=== PATIENT | female | born 1930 | race Caucasian/White ===

== ENCOUNTER 2016-11-14 14:50 | Inpatient (IN) | payer OTHER ==
[~2016-11-14] VITALS: Ht 152.4 cm; Wt 60.5 kg
[~2016-11-14 14:50] MED LIST: AMLODIPINE BESYL5 MG PO; GLIMEPIRIDE4 MG PO; INVOKANA100 MG PO; LISINOPRIL-HCT1 EACH PO; METFORMIN HCL1000 MG PO; PRAVASTATIN SOD20 MG PO; VICTOZA0.6 MG/0.1 SC
[2016-11-14 15:39] LABS: HEMATOCRIT 44.4 % (36.0-46.0); MCH 31.3 PG (29.0-34.0); MEAN PLAT.VOLUME 12.6 uM^3 (9.5-12.4); PLATELET COUNT 231 K/uL (156-360); RBC DIS.WIDTH-CV 14.9 % (11.8-14.6); RBC DIS.WIDTH-SD 53.9 % (39-53); RED BLOOD COUNT 4.53 M/uL (3.80-5.20); WHITE BLOOD COUNT 24.2 K/uL (4.1-10.2)
[2016-11-14 15:50] LABS: INTER. NORMALIZED RATIO 1.2; PTT 33.6 (25-32)
[2016-11-14 15:58] LABS: CHLORIDE 101 mEq/L (99-109); POTASSIUM 3.2 mEq/L (3.7-5.4); SODIUM 141 mEq/L (136-147)
[2016-11-14 16:00] LABS: GLUCOSE 90 mg/dL (70-99)
[2016-11-14 16:01] LABS: ANION GAP 21 MEQ/L (2-14)
[2016-11-14 16:02] LABS: TOTAL BILIRUBIN 0.7 mg/dL (0.0-1.0)
[2016-11-14 16:04] LABS: ALKALINE PHOSPHATASE 78 IU/L (3-129); GFR ESTIMATE (CALCULATED) 56 mL/min/
[2016-11-14 16:05] LABS: UREA NITROGEN (BUN) 26 mg/dL (9-23)
[2016-11-14 16:06] LABS: TROP-I INTERPRETATION INDETERMINATE; TROPONIN-I 0.33 ng/mL (0.0-0.30)
[2016-11-14 16:07] LABS: LIPASE 30 U/L (1.0-51.0)
[2016-11-14 17:01] LABS: ADD MIUA? YES; BILIRUBIN NEGATIVE; BLOOD SMALL; COLOR YELLOW ((YELLOW)); GLUCOSE (STRIP) >=500; KETONES 20; LEUKOCYTES LARGE; NITRITE NEGATIVE; PROTEIN (STRIP) 100; SPECIFIC GRAVITY 1.017 (1.000-1.030); UROBILINOGEN 0.2 MG/DL (0.2-1.0)
[2016-11-14 17:20] LABS: BACTERIA 3+ /HPF; EPITHELIAL CELLS RARE /HPF; MUCUS TRACE /LPF; RED BLOOD CELLS TNTC /HPF (0-5); UCUL ADDED? YES; WHITE BLOOD CELLS TNTC /HPF (0-5); WHITE BLOOD CELLS CLUMP MANY /HPF (0-5)
[2016-11-14] MEDS ORDERED: PRESERVISION T1 EACH PO (18:03)
[2016-11-14] MEDS ORDERED: LO-DOSE ASPIRIN81 M2 PO (18:03)
[2016-11-14] MEDS ORDERED: HYDROCHLOROTHIA25 MG PO (18:03)
[2016-11-14] MEDS ORDERED: CALCIUM 600+D1 EAC1 PO (18:03)
[2016-11-14 21:13] LABS: ABS NEUTROPHIL COUNT 14.9; ANISOCYTOSIS 1+; ATYPICAL LYMPHOCYTE 5.5 %; EOSINOPHIL ABS CT 0; INSTRUMENT ABS NEUTROPHIL CT 13.8 K/uL; PLAT.SUFFICIENCY ADEQUATE; SEG.NEUTROPHILS 54.5 % (46.0-76.0)
[2016-11-14 21:53] LABS: INTACT PARATHYROID HORMONE 30 pg/mL (10-69)
[2016-11-14 22:03] VITALS: BP 101/56
[2016-11-14 22:28] LABS: TROP-I INTERPRETATION NEGATIVE; TROPONIN-I 0.26 ng/mL (0.0-0.30)
[2016-11-14 22:47] LABS: CREATINE KINASE 369 IU/L (1-294); SAMPLE HEMOLYSIS CHECK 0; SAMPLE ICTERIC CHECK 0; SAMPLE LIPEMIA CHECK 0
[2016-11-15 03:39] VITALS: BP 115/53
[2016-11-15 04:07] LABS: HEMATOCRIT 35.8 % (36.0-46.0); MCH 31.8 PG (29.0-34.0); MCHC 32.4 G/DL (30.0-36.0); MCV 98.1 FL (83-99); MEAN PLAT.VOLUME 12.4 uM^3 (9.5-12.4); PLATELET COUNT 184 K/uL (156-360); RBC DIS.WIDTH-CV 14.7 % (11.8-14.6); RBC DIS.WIDTH-SD 53.3 % (39-53); RED BLOOD COUNT 3.65 M/uL (3.80-5.20)
[2016-11-15 04:08] LABS: WHITE BLOOD COUNT 13.6 K/uL (4.1-10.2)
[2016-11-15 04:16] LABS: CHLORIDE 106 mEq/L (99-109); POTASSIUM 3.5 mEq/L (3.7-5.4); SODIUM 141 mEq/L (136-147)
[2016-11-15 04:19] LABS: ANION GAP 15 MEQ/L (2-14)
[2016-11-15 04:21] LABS: GFR ESTIMATE (CALCULATED) > 59 mL/min/
[2016-11-15 04:22] LABS: UREA NITROGEN (BUN) 16 mg/dL (9-23)
[2016-11-15 04:26] LABS: TROP-I INTERPRETATION NEGATIVE
[2016-11-15 04:28] LABS: GLUCOSE 57 mg/dL (70-99)
[2016-11-15 07:47] VITALS: BP 112/72
[2016-11-15 12:23] VITALS: BP 126/72
[2016-11-15 19:30] VITALS: BP 103/51
[2016-11-15 20:52] LABS: POINT-OF-CARE METER ID UU13113725
[2016-11-15 22:53] VITALS: BP 106/55
[2016-11-16 02:59] VITALS: BP 123/66
[2016-11-16 06:54] LABS: HEMATOCRIT 41.5 % (36.0-46.0); MCH 31.5 PG (29.0-34.0); MCHC 31.1 G/DL (30.0-36.0); MCV 101.2 FL (83-99); MEAN PLAT.VOLUME 12.9 uM^3 (9.5-12.4); PLATELET COUNT 196 K/uL (156-360); RBC DIS.WIDTH-CV 15.1 % (11.8-14.6); RBC DIS.WIDTH-SD 56.6 % (39-53); WHITE BLOOD COUNT 12.4 K/uL (4.1-10.2)
[2016-11-16 07:06] VITALS: BP 125/57
[2016-11-16 07:30] LABS: ANION GAP 11 MEQ/L (2-14); CHLORIDE 107 MEQ/L (99-109); GFR ESTIMATE (CALCULATED) > 59 mL/min/; SAMPLE HEMOLYSIS CHECK 0; SAMPLE ICTERIC CHECK 0; SAMPLE LIPEMIA CHECK 0; SODIUM 145 MEQ/L (136-147); UREA NITROGEN (BUN) 18 mg/dL (9-23)
[2016-11-16 07:31] LABS: GLUCOSE 150 mg/dL (70-99); POTASSIUM 4.7 MEQ/L (3.7-5.4)
[2016-11-16 10:34] LABS: POINT-OF-CARE METER ID UU13113725
[2016-11-16 10:49] VITALS: BP 88/54
[2016-11-16 12:27] LABS: ABS NEUTROPHIL COUNT 6.2; ANISOCYTOSIS 1+; ATYPICAL LYMPHOCYTE 3.3 %; BAND NEUTROPHILS 2.2 % (0-8.0); EOSINOPHIL ABS CT 0.1; EOSINOPHILS 1.1 % (0-5.0); INSTRUMENT ABS NEUTROPHIL CT 5.4 K/uL; LYMPHOCYTES 15.2 % (15.0-45.0); PLAT.SUFFICIENCY ADEQUATE; POLYCHROMASIA 1+; SEG.NEUTROPHILS 47.8 % (46.0-76.0)
[2016-11-16 16:01] VITALS: BP 104/59
[2016-11-16 19:26] VITALS: BP 130/60
[2016-11-16 23:24] VITALS: BP 129/68
[2016-11-17 03:30] VITALS: BP 140/75
[2016-11-17 06:42] LABS: HEMATOCRIT 40.2 % (36.0-46.0); MCH 31.4 PG (29.0-34.0); MCHC 31.3 G/DL (30.0-36.0); MCV 100.2 FL (83-99); MEAN PLAT.VOLUME 12.9 uM^3 (9.5-12.4); PLATELET COUNT 183 K/uL (156-360); RBC DIS.WIDTH-CV 15.2 % (11.8-14.6); RBC DIS.WIDTH-SD 56.7 % (39-53); RED BLOOD COUNT 4.01 M/uL (3.80-5.20); WHITE BLOOD COUNT 13.4 K/uL (4.1-10.2)
[2016-11-17 07:08] LABS: ANION GAP 12 MEQ/L (2-14); CHLORIDE 107 MEQ/L (99-109); GFR ESTIMATE (CALCULATED) > 59 mL/min/; GLUCOSE 179 mg/dL (70-99); POTASSIUM 3.7 MEQ/L (3.7-5.4); SAMPLE HEMOLYSIS CHECK 0; SAMPLE ICTERIC CHECK 0; SAMPLE LIPEMIA CHECK 0; SODIUM 144 MEQ/L (136-147); UREA NITROGEN (BUN) 21 mg/dL (9-23)
[2016-11-17 07:20] VITALS: BP 109/62
[2016-11-17 08:50] LABS: ABS NEUTROPHIL COUNT 8.6; EOSINOPHIL ABS CT 0; INSTRUMENT ABS NEUTROPHIL CT 6.1 K/uL; MACROCYTES 1+; PLAT.SUFFICIENCY ADEQUATE; POLYCHROMASIA 1+
[2016-11-17 10:39] VITALS: BP 125/58
[2016-11-17 16:02] LABS: POINT-OF-CARE METER ID UU13113725
[2016-11-17 16:15] VITALS: BP 99/57
[2016-11-17 20:12] VITALS: BP 120/60
[2016-11-17 21:22] LABS: POINT-OF-CARE METER ID UU13113725
[2016-11-18 00:20] VITALS: BP 107/64
[2016-11-18 06:02] LABS: POINT-OF-CARE METER ID UU13113725
[2016-11-18 07:00] VITALS: BP 121/60
[2016-11-18 11:45] LABS: POINT-OF-CARE METER ID UU13113725
[2016-11-18 16:41] VITALS: BP 112/58
[2016-11-18 17:07] LABS: POINT-OF-CARE METER ID UU13113725
[2016-11-18 21:57] VITALS: BP 106/59; BP 109/59
[2016-11-18 22:23] VITALS: BP 114/55
[2016-11-19 06:40] LABS: HEMATOCRIT 37.8 % (36.0-46.0); MCH 31.5 PG (29.0-34.0); MCHC 31.2 G/DL (30.0-36.0); MCV 100.8 FL (83-99); MEAN PLAT.VOLUME 12.6 uM^3 (9.5-12.4); PLATELET COUNT 176 K/uL (156-360); RBC DIS.WIDTH-CV 15.3 % (11.8-14.6); RBC DIS.WIDTH-SD 56.6 % (39-53); RED BLOOD COUNT 3.75 M/uL (3.80-5.20); WHITE BLOOD COUNT 14.8 K/uL (4.1-10.2)
[2016-11-19 07:01] VITALS: BP 130/62
[2016-11-19 07:19] LABS: ALKALINE PHOSPHATASE 49 IU/L (3-129); ANION GAP 11 MEQ/L (2-14); CHLORIDE 107 MEQ/L (99-109); GFR ESTIMATE (CALCULATED) > 59 mL/min/; GLUCOSE 216 mg/dL (70-99); POTASSIUM 3.8 MEQ/L (3.7-5.4); SAMPLE HEMOLYSIS CHECK 0; SAMPLE ICTERIC CHECK 0; SAMPLE LIPEMIA CHECK 0; SODIUM 142 MEQ/L (136-147); TOTAL BILIRUBIN 0.4 MG/DL (0.0-1.0); UREA NITROGEN (BUN) 20 mg/dL (9-23)
[2016-11-19 07:45] LABS: ABS NEUTROPHIL COUNT 7.5; ANISOCYTOSIS 1+; BAND NEUTROPHILS 2.6 % (0-8.0); EOSINOPHIL ABS CT 0; INSTRUMENT ABS NEUTROPHIL CT 5.8 K/uL; LYMPHOCYTES 15.8 % (15.0-45.0); MACROCYTES 1+; METAMYELOCYTES 2.6 %; MYELOCYTES 4.4 %; PLAT.SUFFICIENCY ADEQUATE; POLYCHROMASIA 2+; SEG.NEUTROPHILS 48.3 % (46.0-76.0)
[2016-11-19 14:55] VITALS: BP 139/66
[2016-11-19 14:56] VITALS: BP 116/67; BP 121/67
[2016-11-19] MEDS ORDERED: CARVEDILOL6.25 MG PO (15:14)
[2016-11-19] MEDS ORDERED: FLUCONAZOLE100 MG PO (15:14)
[2016-11-19] MEDS ORDERED: VALSARTAN160 MG PO (15:15)
[2016-11-19] MEDS ORDERED: CYANOCOBALAM1000 MCG PO (15:20)
[2016-11-19] MEDS ORDERED: NOVOLOG PE100 UNITS/ SC (15:20)
[2016-11-19] MEDS ORDERED: BACTRIM,SEPT1 TABLET PO (15:31)
[2016-11-19 15:53] VITALS: BP 109/56
[2016-11-19 21:07] LABS: POINT-OF-CARE METER ID UU13113725
[2016-11-20 00:06] VITALS: BP 104/55
[2016-11-20 06:04] LABS: POINT-OF-CARE METER ID UU13113725
[2016-11-20 07:03] VITALS: BP 132/60
[2016-11-20] MEDS ORDERED: BACTRIM,SEPT1 TABLET PO (16:09)
[2016-11-20 16:36] VITALS: BP 125/59
[2016-11-20 16:37] VITALS: BP 123/58; BP 129/60
== END 2016-11-20 17:40 | DRG 871 ==
LOC: EME 14:50 → 5EAST 19:48 → EDOF 19:48 → 5EAST 21:48
PROVIDERS: Emergency Medicine; Hospitalist
DX: B37.7 Candidal sepsis (principal); B37.49 Other urogenital candidiasis; G93.41 Metabolic encephalopathy; I11.0 Hypertensive heart disease with heart failure; I50.23 Acute on chronic systolic (congestive) heart failure; E87.2 Acidosis; I24.8 Other forms of acute ischemic heart disease; I42.9 Cardiomyopathy, unspecified; L89.150 Pressure ulcer of sacral region, unstageable; L89.153 Pressure ulcer of sacral region, stage 3; L03.116 Cellulitis of left lower limb; B37.3 Candidiasis of vulva and vagina; E11.8 Type 2 diabetes mellitus with unspecified complications; E86.0 Dehydration; E87.6 Hypokalemia; E83.52 Hypercalcemia; I89.0 Lymphedema, not elsewhere classified; F03.90 Unspecified dementia, unspecified severity, without behavioral disturbance, psychotic disturbance, mood disturbance, and anxiety; R39.15 Urgency of urination; R32 Unspecified urinary incontinence; E78.5 Hyperlipidemia, unspecified; B35.1 Tinea unguium; R91.8 Other nonspecific abnormal finding of lung field; Z79.82 Long term (current) use of aspirin
CPT/HCPCS: 70450; 71010; 71275; 74176; 80048; 80053; 81003; 82550; 82550 91; 82565; 82607; 82746; 82948; 83605; 83690; 83880; 83970; 84443; 84484; 84520; 85025; 85027; 85610; 85730; 87040; 87086; 87106; 93005; 93306; 93970; 94799; 95819; 97530 GO; 99281; 99285; J0696; J1644; J1650; J1815; J1940; J7030; J7050

== ENCOUNTER 2017-08-04 16:11 | Observation (INO) | payer OTHER ==
[~2017-08-04] VITALS: Ht 147.3 cm; Wt 58.4 kg
[~2017-08-04 16:11] MED LIST changes: +BACTRIM,SEPT1 TABLET PO; +CALCIUM 600+D1 EAC1 PO; +CARVEDILOL6.25 MG PO; +CYANOCOBALAM1000 MCG PO; +FLUCONAZOLE100 MG PO; +HYDROCHLOROTHIA25 MG PO; +LO-DOSE ASPIRIN81 M2 PO; +NOVOLOG PE100 UNITS/ SC; +PRESERVISION T1 EACH PO; +VALSARTAN160 MG PO
[2017-08-04 16:56] LABS: HEMATOCRIT 45.7 % (36.0-46.0); MCH 31.6 PG (29.0-34.0); MCHC 31.9 G/DL (30.0-36.0); MCV 98.9 FL (83-99); RBC DIS.WIDTH-CV 14.5 % (11.8-14.6); RBC DIS.WIDTH-SD 52.8 % (39-53); RED BLOOD COUNT 4.62 M/uL (3.80-5.20); WHITE BLOOD COUNT 18.3 K/uL (4.1-10.2)
[2017-08-04 17:00] LABS: CHLORIDE 103 mEq/L (99-109); POTASSIUM 4.1 mEq/L (3.7-5.4); SODIUM 140 mEq/L (136-147)
[2017-08-04 17:02] LABS: GLUCOSE 157 mg/dL (70-99)
[2017-08-04 17:03] LABS: ANION GAP 12 MEQ/L (2-14)
[2017-08-04 17:04] LABS: TOTAL BILIRUBIN 0.8 mg/dL (0.0-1.0)
[2017-08-04 17:06] LABS: ALKALINE PHOSPHATASE 69 IU/L (3-129); GFR ESTIMATE (CALCULATED) > 59 mL/min/
[2017-08-04 17:07] LABS: UREA NITROGEN (BUN) 14 mg/dL (9-23)
[2017-08-04 17:15] LABS: ADD MIUA? YES; BILIRUBIN NEGATIVE; BLOOD SMALL; COLOR YELLOW ((YELLOW)); GLUCOSE (STRIP) >=500; KETONES 5; LEUKOCYTES LARGE; NITRITE NEGATIVE; PROTEIN (STRIP) 100; SPECIFIC GRAVITY 1.012 (1.000-1.030); UROBILINOGEN 0.2 MG/DL (0.2-1.0)
[2017-08-04 17:44] LABS: RED BLOOD CELLS 0-5 /HPF (0-5); WHITE BLOOD CELLS 30-40 /HPF (0-5)
[2017-08-04 17:45] LABS: BACTERIA RARE /HPF; CASTS NONE SEEN /LPF; CRYSTALS NONE SEEN; EPITHELIAL CELLS 1+ /HPF; MUCUS NONE SEEN /LPF; UCUL ADDED? YES
[2017-08-04 19:16] LABS: ABS NEUTROPHIL COUNT 10.1; ANISOCYTOSIS 1+; EOSINOPHIL ABS CT 0; INSTRUMENT ABS NEUTROPHIL CT 8.2 K/uL; PLAT.SUFFICIENCY DECREASED; PLATELET COUNT 113 K/uL (156-360); POLYCHROMASIA 1+
[2017-08-04] MEDS ORDERED: CEPHALEXIN500 MG PO (22:05)
[2017-08-04] MEDS ORDERED: COREG3.125 M1 PO (23:01)
[2017-08-04] MEDS ORDERED: COZAAR25 MG PO (23:02)
[2017-08-05 00:10] VITALS: BP 149/67
[2017-08-05 03:58] VITALS: BP 124/62
[2017-08-05 06:43] LABS: BASOPHIL COUNT 0.1 K/uL (0-0.1); EOSINOPHIL (%) 0.3 % (0-5); EOSINOPHIL COUNT 0.1 K/uL (0-0.3); HEMATOCRIT 41.9 % (36.0-46.0); IMMATURE GRANULOCYTE (%) 4.3 % (0.0-0.7); IMMATURE GRANULOCYTE COUNT 0.7 K/uL; INSTRUMENT ABS NEUTROPHIL CT 6.7 K/uL; LYMPHOCYTE COUNT 1.6 K/uL (1.0-2.8); MCH 32.6 PG (29.0-34.0); MCHC 32.2 G/DL (30.0-36.0); MCV 101.2 FL (83-99); MEAN PLAT.VOLUME 13.9 uM^3 (9.5-12.4); MONOCYTE (%) 44.8 % (3-12); MONOCYTE COUNT 7.4 K/uL (0-0.8); NEUTROPHIL (%) 40.4 % (45-76); NEUTROPHIL COUNT 6.7 K/uL (1.8-6.4); NRBC (%) 0.1 /100 WBC (0-0); PLATELET COUNT 101 K/uL (156-360); RBC DIS.WIDTH-CV 14.8 % (11.8-14.6); RBC DIS.WIDTH-SD 55.5 % (39-53); RED BLOOD COUNT 4.14 M/uL (3.80-5.20); WHITE BLOOD COUNT 16.5 K/uL (4.1-10.2)
[2017-08-05 07:44] LABS: HEMATOLOGY COMMENT 1 SMEAR COMPATIBLE; PLAT.SUFFICIENCY DECREASED
[2017-08-05 08:21] LABS: POINT-OF-CARE METER ID UU13113831
[2017-08-05 09:00] VITALS: BP 135/65
[2017-08-05 12:20] VITALS: BP 128/62
[2017-08-05 12:44] LABS: POINT-OF-CARE METER ID UU13113700
[2017-08-05 13:34] LABS: C-REACTIVE PROTEIN 93.1 MG/L (0-10)
[2017-08-05 17:48] LABS: POINT-OF-CARE METER ID UU13113700
[2017-08-05 20:00] VITALS: BP 139/61
[2017-08-05 22:46] LABS: POINT-OF-CARE METER ID UU13113831
[2017-08-06 00:08] VITALS: BP 155/63
[2017-08-06 04:40] VITALS: BP 142/65
[2017-08-06 08:33] LABS: POINT-OF-CARE METER ID UU13113700
[2017-08-06 11:11] VITALS: BP 129/60
[2017-08-06 12:12] VITALS: BP 188/81
[2017-08-06 12:37] LABS: POINT-OF-CARE METER ID UU13113700
[2017-08-06 16:43] VITALS: BP 154/69
[2017-08-06 17:45] LABS: POINT-OF-CARE METER ID UU13113700
[2017-08-06 20:44] VITALS: BP 143/63
[2017-08-06 21:50] LABS: POINT-OF-CARE METER ID UU13113831
[2017-08-07 00:08] VITALS: BP 147/65
[2017-08-07 03:57] VITALS: BP 141/62
[2017-08-07 09:45] LABS: Flow Number of Markers 23 (()); Flow Spec Viability 97 % (()); Flow Specimen Type PERIPHERAL BLOOD (())
[2017-08-07 11:43] VITALS: BP 137/84
[2017-08-07 12:42] LABS: POINT-OF-CARE METER ID UU13113700
[2017-08-07 15:43] LABS: Prior Results Not Given (())
[2017-08-07 16:29] LABS: P190 BCR-ABL1 Not Detected (()); P210 BCR-ABL1 Not Detected (())
[2017-08-07 17:14] LABS: POINT-OF-CARE METER ID UU13113700
[2017-08-10 19:04] LABS: JAK2 Mutation Result NOT DETECTED (())
[2017-08-10 19:35] LABS: JAK2 Exon 12 Mutation NOT DETECTED (())
== END 2017-08-07 18:16 ==
LOC: EME 16:11 → EDOF 22:51 → 5WEST 22:51 → EDOF 22:51 → ENRESERV 22:54 → 5WEST 08-05 00:03
PROVIDERS: Emergency Medicine; Hospitalist; Internal Medicine Hematology & Oncology; Physician Assistant Medical
DX: D72.829 Elevated white blood cell count, unspecified (principal); M25.562 Pain in left knee; S30.0XXA Contusion of lower back and pelvis, initial encounter; E87.2 Acidosis; B35.1 Tinea unguium; N39.0 Urinary tract infection, site not specified; G89.29 Other chronic pain; M17.12 Unilateral primary osteoarthritis, left knee; W08.XXXA Fall from other furniture, initial encounter; F03.90 Unspecified dementia, unspecified severity, without behavioral disturbance, psychotic disturbance, mood disturbance, and anxiety; I11.0 Hypertensive heart disease with heart failure; I50.22 Chronic systolic (congestive) heart failure; E11.65 Type 2 diabetes mellitus with hyperglycemia; I51.7 Cardiomegaly; R32 Unspecified urinary incontinence; Z60.2 Problems related to living alone; Z87.891 Personal history of nicotine dependence; Z83.3 Family history of diabetes mellitus
CPT/HCPCS: 70450; 71010; 72125; 73521; 73522; 73564; 80053; 81003; 81206 90; 81270 90; 82728; 82948; 83605; 84443; 85025; 85651; 86140; 86317 90; 86704 90; 86708 90; 86709 90; 86803 90; 87040; 87086; 88185 90; 93971; 97530 GO; 99281; 99285; G0378; G8978 GP CJ; G8979 GP CI; G8987 CK; G8988 GO CJ; J0690; J0696; J1644; J1815; J7030

== ENCOUNTER 2017-08-17 22:00 | Emergency (ER) | payer OTHER ==
[~2017-08-17] VITALS: Ht 165.1 cm; Wt 58.9 kg
[~2017-08-17 22:00] MED LIST changes: +CEPHALEXIN500 MG PO; +COREG3.125 M1 PO; +COZAAR25 MG PO
[2017-08-17 23:20] LABS: ADD MIUA? YES; BILIRUBIN NEGATIVE; BLOOD NEGATIVE; COLOR YELLOW ((YELLOW)); GLUCOSE (STRIP) >=500; KETONES NEGATIVE; LEUKOCYTES TRACE; NITRITE NEGATIVE; PROTEIN (STRIP) NEGATIVE; SPECIFIC GRAVITY 1.025 (1.000-1.030)
[2017-08-17 23:24] LABS: HEMATOCRIT 37.7 % (36.0-46.0); MCH 32.4 PG (29.0-34.0); MCHC 32.1 G/DL (30.0-36.0); MCV 101.1 FL (83-99); MEAN PLAT.VOLUME 14.5 uM^3 (9.5-12.4); RBC DIS.WIDTH-CV 15.2 % (11.8-14.6); RBC DIS.WIDTH-SD 56.1 % (39-53); RED BLOOD COUNT 3.73 M/uL (3.80-5.20); WHITE BLOOD COUNT 15.2 K/uL (4.1-10.2)
[2017-08-17 23:24] LABS: BACTERIA NONE SEEN /HPF; EPITHELIAL CELLS NONE SEEN /HPF; MUCUS NONE SEEN /LPF; RED BLOOD CELLS 0-5 /HPF (0-5); UCUL ADDED? YES; WHITE BLOOD CELLS 20-30 /HPF (0-5)
[2017-08-17 23:26] LABS: PLATELET COUNT 72 K/uL (156-360)
[2017-08-17 23:33] LABS: CHLORIDE 108 mEq/L (99-109)
[2017-08-17 23:35] LABS: GLUCOSE 170 mg/dL (70-99)
[2017-08-17 23:36] LABS: ANION GAP 11 MEQ/L (2-14)
[2017-08-17 23:38] LABS: GFR ESTIMATE (CALCULATED) > 59 mL/min/
[2017-08-17 23:39] LABS: UREA NITROGEN (BUN) 12 mg/dL (9-23)
[2017-08-17 23:42] LABS: SODIUM 147 mEq/L (136-147)
[2017-08-18] MEDS ORDERED: LEVAQUIN750 MG PO (00:19)
[2017-08-18 01:19] VITALS: BP 125/69
== END 2017-08-18 02:28 ==
LOC: EME → EDBD 22:00 → EME 08-18 02:28
PROVIDERS: Emergency Medicine Emergency Medical Services
DX: S09.90XA Unspecified injury of head, initial encounter (principal); S00.03XA Contusion of scalp, initial encounter; N39.0 Urinary tract infection, site not specified; I10 Essential (primary) hypertension; F03.90 Unspecified dementia, unspecified severity, without behavioral disturbance, psychotic disturbance, mood disturbance, and anxiety; W18.30XA Fall on same level, unspecified, initial encounter; Y92.129 Unspecified place in nursing home as the place of occurrence of the external cause; Z87.891 Personal history of nicotine dependence; Z79.84 Long term (current) use of oral hypoglycemic drugs; Z79.82 Long term (current) use of aspirin
CPT/HCPCS: 70450; 80048; 81003; 85027; 87086; 99281; 99285